=== PATIENT | male | born 1995 | race Caucasian/White ===

== ENCOUNTER 2018-12-19 20:14 | Emergency (ER) | payer OTHER ==
[~2018-12-19] VITALS: Ht 167.6 cm; Wt 68.0 kg
[2018-12-20] MEDS ORDERED: ORASEP SPRAY30 ML MM (03:40)
[2018-12-20] MEDS ORDERED: AMOX-CLAV 875-1 EACH PO (03:40)
== END 2018-12-20 04:26 | disposition home or self-care (01) ==
LOC: ER 20:14
DX: J03.90 Acute tonsillitis, unspecified (principal); B34.9 Viral infection, unspecified

== ENCOUNTER 2019-01-02 08:52 | Emergency (ER) | payer OTHER ==
[~2019-01-02] VITALS: Ht 167.6 cm; Wt 69.9 kg
[~2019-01-02 08:52] MED LIST: AMOX-CLAV 875-1 EACH PO; ORASEP SPRAY30 ML MM
== END 2019-01-02 11:58 | disposition home or self-care (01) ==
LOC: ER 08:52
DX: J03.90 Acute tonsillitis, unspecified (principal); R05 Cough